=== PATIENT | female | born 1995 | race Caucasian/White ===

== ENCOUNTER 2016-12-31 14:15 | Emergency (ER) | payer OTHER ==
[~2016-12-31] VITALS: Ht 162.6 cm; Wt 59.6 kg
[~2016-12-31 14:15] MED LIST: CYCL5TAB PO
[2016-12-31 14:21] VITALS: TEMP 36.8; Ht 162.6 cm; Wt 59.6 kg
[2016-12-31 16:01] LABS: BASO % 0.3 %; BASO ABS # 0.03 K/uL (0-0.2); COMPLETE YES; EOS % 0.7 %; HEMATOCRIT 39.8 % (37-47); IG% 0.2 %; LYMPH % 14.2 %; LYMPH ABS # 1.55 K/uL (1.2-3.4); MEAN CELL VOLUME 92.6 fL (80-100); MEAN CORPUSCULAR HEMOGLOBIN 31.9 pg (25-34); MEAN CORPUSCULAR HGB CONC 34.4 g/dl (32-36); MEAN PLATELET VOLUME 10.3 fL (7.4-10.4); MONO % 9.1 %; NEUT % 75.5 %; PLATELET COUNT 283 K/uL (130-400); WHITE BLOOD COUNT 10.89 K/uL (4.8-10.8)
[2016-12-31 16:06] LABS: URINE APPEARANCE CLOUDY (CLEAR); URINE BILIRUBIN NEG (NEG); URINE COLOR DK YELLOW; URINE EPITHELIAL CELL AUTO >30 /lpf (0-5); URINE NITRITE NEG (NEG); URINE PH 5.5 (4.5-7.5); URINE SPECIFIC GRAVITY 1.023 (1.000-1.030); UROBILINOGEN NEG (NEG); ZZUR CULT IF INDIC CLEAN CATCH NO
[2016-12-31 16:07] LABS: MANUAL MICROSCOPIC REQUIRED? NO; REVIEW REQ? NO
[2016-12-31] MEDS ORDERED: MECLIZINE HCL 25 MG TAB PO STA (16:10)
[2016-12-31 16:11] LABS: ALT/SGPT 15 U/L (12-78); AST/SGOT 11 U/L (15-37); BLOOD UREA NITROGEN 10 mg/dl (7-18); CALCIUM 8.8 mg/dl (8.5-10.1); CARBON DIOXIDE 28 mmol/L (21-32); CHLORIDE 109 mmol/L (98-107); CREATININE 0.81 mg/dl (0.60-1.20); GLUCOSE 82 mg/dl (70-99); POTASSIUM 3.6 mmol/L (3.5-5.1); SODIUM 144 mmol/L (136-145)
[2016-12-31] MEDS ORDERED: EFF/375 PO (16:12)
[2016-12-31] MEDS ORDERED: SODIUM CHLORIDE 0.9% 1000ML 1,000 ML IV ONE (16:15)
--- NOTE | 2016-12-31 16:17 | DIAGNOSTIC IMAGING REPORT ---
CHEST ONE VIEW PORTABLE CLINICAL HISTORY: dizziness SYNCOPE COMPARISON STUDY: No previous studies for comparison. FINDINGS: The cardiac and mediastinal contours are normal. There is no evidence of focal pulmonary consolidation. There is no evidence of failure. No pleural effusions are visualized.[ IMPRESSION: No active disease in the chest. Electronically signed by: Jatinder Perdomo M.D. 12/31/2016 4:15 PM Dictated Date/Time: 12/31/2016 4:15 PM
[2016-12-31 16:22] LABS: ALB/GLOB RATIO 1.3 (0.9-2); ALKALINE PHOSPHATASE 55 U/L (45-117); THYROID STIMULATING HORMONE 0.413 uIu/ml (0.300-4.500)
[2016-12-31] MEDS ORDERED: ONDA4TAB10 SL (17:12)
[2016-12-31 17:31] VITALS: BP 104/65; PULSE 84; O2SAT 96
--- NOTE | 2016-12-31 23:26 | EMERGENCY ROOM VISIT NOTE ---
History First contact with patient: 15:57 Chief Complaint: DIZZY Stated Complaint: LIGHTHEADED, DIZZY, SHAKING, FAINTING, REAL, STOMACH Nursing Triage Summary: Triage note: pt reports she started effexor 8 days ago. pt reports shortly after starting she has had decreased appetite, vomitting, dizziness and feeling lightheaded. pt reports "i don't know if i passed out or what today i don't remember falling asleep but i remember waking up i was laying down." pt reports mid abd pain started today. History of Present Illness The patient is a 21 year old female who presents to the Emergency Room with complaints of lightheadedness, dizziness, headache, and nausea for the past 7 or 8 days. The patient considers herself usually healthy, but does have some history of anxiety and depression in the past. The patient went to her primary care physician last week and was started on Effexor for the first time. The patient states that her symptoms essentially began immediately after starting this medication. She has had some URI symptoms, and states that when she stands and walks or moves her head she feels like the room is spinning. She has not had vertigo in the past. The patient has not had numbness or paresthesias. No suicidal or homicidal ideation. She denies chance of as she is currently on her menses. The patient had 2 episodes of vomiting yesterday. She is without her normal appetite, and has not been eating well. She has been drinking fluids without difficulty however. She rates her current discomfort a 7/10. Review of Systems More than 10 systems were reviewed and otherwise negative with the exception of history of present illness. Past Medical/Surgical History Medical Problems: (1) Cervicalgia (2) Suicidal ideation Family History Hypertension Social History Smoking Status: Current Every Day Smoker Alcohol Use: none Marital Status: single Housing Status: lives with family Occupation Status: student Current/Historical Medications Scheduled Cyclobenzaprine Hcl (Flexeril), 1 TAB PO PRN UD Ondasetron Odt (Zofran Odt), 4 MG SL Q6H Venlafaxine Hcl (Effexor), 37.5 MG PO DAILY Allergies Coded Allergies: No Known Allergies (Unverified , 10/10/16) Physical Exam Vital Signs Date Time Temp Pulse Resp B/P Pulse Ox O2 Delivery O2 Flow Rate FiO2 12/31/16 17:31 84 18 104/65 96 12/31/16 16:37 73 12/31/16 15:50 72 16 97 Room Air 12/31/16 14:21 36.8 88 18 151/97 97 Room Air Physical Exam VITALS: Vitals are noted on the nurse's note and reviewed by myself. Vital signs stable. GENERAL: Well-developed, well-nourished, white female, who is in no acute distress and resting comfortably. Patient is cooperative with the examination. HEAD: Normocephalic atraumatic. EARS: External ear normal. External auditory canals clear, tympanic membranes pearly sabillon without erythema or effusion bilaterally. EYES: Pupils equal round and reactive to light and accommodation. Conjunctivae without injection, sclerae without icterus. Extraocular movements intact. No nystagmus. NOSE: Patent, turbinates without inflammation or discharge. MOUTH: Mucous membranes moist. Tonsils are not enlarged. Pharynx without erythema, blood, or exudate. Uvula midline. Airway patent. NECK: Supple without nuchal rigidity. No lymphadenopathy. No thyromegaly. Cervical spine is nontender. HEART: Regular rate and rhythm without murmurs gallops or rubs. LUNGS: Clear to auscultation bilaterally without wheezes, rales or rhonchi. No retractions or accessory muscle use. ABDOMEN: Positive normal bowel sounds x 4. Soft, nontender, without masses or organomegaly. No guarding or rebound tenderness. MUSCULOSKELETAL: No muscle atrophy, erythema, or edema noted. Full range of motion without joint tenderness in all extremities. No tenderness to palpation. Normal gait. Strength 5/5 throughout. NEURO: Patient was alert and oriented to person place and time. CN II through XII grossly intact. Deep tendon reflexes 2+ throughout. No focal neurological deficits SKIN: The skin was without rashes, erythema, edema, or bruising. Capillary reflex less than 2 seconds. Medical Decision & Procedures ER Provider Diagnostic Interpretation: CHEST ONE VIEW PORTABLE CLINICAL HISTORY: dizziness SYNCOPE COMPARISON STUDY: No previous studies for comparison. FINDINGS: The cardiac and mediastinal contours are normal. There is no evidence of focal pulmonary consolidation. There is no evidence of failure. No pleural effusions are visualized.[ IMPRESSION: No active disease in the chest. Laboratory Results 12/31/16 15:45 Red Blood Count 4.30, Mean Corpuscular Volume 92.6, Mean Corpuscular Hemoglobin 31.9, Mean Corpuscular Hemoglobin Concent 34.4, Mean Platelet Volume 10.3, Neutrophils (%) (Auto) 75.5, Lymphocytes (%) (Auto) 14.2, Monocytes (%) (Auto) 9.1, Eosinophils (%) (Auto) 0.7, Basophils (%) (Auto) 0.3, Neutrophils # (Auto) 8.22, Lymphocytes # (Auto) 1.55, Monocytes # (Auto) 0.99, Eosinophils # (Auto) 0.08, Basophils # (Auto) 0.03 12/31/16 15:45 Test 12/31/16 15:45 White Blood Count 10.89 K/uL (4.8-10.8) Red Blood Count 4.30 M/uL (4.2-5.4) Hemoglobin 13.7 g/dL (12.0-16.0) Hematocrit 39.8 % (37-47) Mean Corpuscular Volume 92.6 fL (80-100) Mean Corpuscular Hemoglobin 31.9 pg (25-34) Mean Corpuscular Hemoglobin Concent 34.4 g/dl (32-36) Platelet Count 283 K/uL (130-400) Mean Platelet Volume 10.3 fL (7.4-10.4) Neutrophils (%) (Auto) 75.5 % Lymphocytes (%) (Auto) 14.2 % Monocytes (%) (Auto) 9.1 % Eosinophils (%) (Auto) 0.7 % Basophils (%) (Auto) 0.3 % Neutrophils # (Auto) 8.22 K/uL (1.4-6.5) Lymphocytes # (Auto) 1.55 K/uL (1.2-3.4) Monocytes # (Auto) 0.99 K/uL (0.11-0.59) Eosinophils # (Auto) 0.08 K/uL (0-0.5) Basophils # (Auto) 0.03 K/uL (0-0.2) RDW Standard Deviation 43.4 fL (36.4-46.3) RDW Coefficient of Variation 12.9 % (11.5-14.5) Immature Granulocyte % (Auto) 0.2 % Immature Granulocyte # (Auto) 0.02 K/uL (0.00-0.02) Urine Color DK YELLOW Urine Appearance CLOUDY (CLEAR) Urine pH 5.5 (4.5-7.5) Urine Specific [place] 1.023 (1.000-1.030) Urine Protein NEG (NEG) Urine Glucose (UA) NEG (NEG) Urine Ketones TRACE (NEG) Urine Occult Blood NEG (NEG) Urine Nitrite NEG (NEG) Urine Bilirubin NEG (NEG) Urine Urobilinogen NEG (NEG) Urine Leukocyte Esterase NEG (NEG) Urine WBC (Auto) 1-5 /hpf (0-5) Urine RBC (Auto) 0-4 /hpf (0-4) Urine Hyaline Casts (Auto) 5-10 /lpf (0-5) Urine Epithelial Cells (Auto) >30 /lpf (0-5) Urine Bacteria (Auto) NEG (NEG) Anion Gap 7.0 mmol/L (3-11) Est Creatinine Clear Calc Drug Dose 95.7 ml/min Estimated GFR () 121.2 Estimated GFR (Non- 104.6 BUN/Creatinine Ratio 12.0 (10-20) Calcium Level 8.8 mg/dl (8.5-10.1) Total Bilirubin 0.6 mg/dl (0.2-1) Aspartate Amino Transf (AST/SGOT) 11 U/L (15-37) Alanine Aminotransferase (ALT/SGPT) 15 U/L (12-78) Alkaline Phosphatase 55 U/L (45-117) Total Creatine Kinase 61 U/L (26-192) Creatine Kinase MB < 0.5 ng/ml (0.5-3.6) Creatine Kinase MB Ratio (0-3.0) Total Protein 7.5 gm/dl (6.4-8.2) Albumin 4.2 gm/dl (3.4-5.0) Globulin 3.3 gm/dl (2.5-4.0) Albumin/Globulin Ratio 1.3 (0.9-2) Thyroid Stimulating Hormone (TSH) 0.413 uIu/ml (0.300-4.500) Medications Administered Medications (Trade) Dose Ordered Sig/Vicki Route Start Time Stop Time Status Last Admin Dose Admin Sodium Chloride (Nss 1000ml) 1,000 ml @ 999 mls/hr Q1H1M ONCE IV 12/31/16 16:15 12/31/16 17:15 DC 12/31/16 16:30 999 MLS/HR Meclizine HCl (Antivert Tab) 25 mg NOW STAT PO 12/31/16 16:10 12/31/16 16:12 DC 12/31/16 16:30 25 MG ED Course Physical exam and history were performed. Nursing notes and EMR were reviewed. Patient appears to have dizziness, nausea, and vomiting for the past week. This seems to coincide with her starting a new antidepressant medication. IV access was established and labs were obtained. EKG was performed and was normal sinus rhythm. Chest x-ray was ordered and the patient was placed on the property assessment monitor. She was hydrated with normal saline, and given oral meclizine as she does seem to be describing vertiginous symptoms. The patient's blood work is as above and was reviewed. She does not have a significantly elevated white blood cell count, anemia, bandemia, or gross electrolyte imbalance. CK and CK-MB are normal. TSH is normal. Urine is without sign of infection. Chest x-ray does not show acute process. I did reevaluate the patient several times throughout her emergency department stay. After hydration she had almost complete resolution of her symptoms. She does not have persistent vertiginous symptoms, nor did she develop worsening symptoms while here in the department. Clinically her evaluation is benign, as well as her physical exam. I do suspect that her symptoms are related to her medication, and will have her discontinue this. I will provide her a small amount of Zofran to assist with her nausea and vomiting. Hopefully this will allow her to eat and drink well at home, which should improve many of her symptoms. I did recommend the patient contact her primary care physician's office in the morning to let them know we are changing her medications. She should be rechecked by them, as she may need a different SSRI or similar medication. The patient was otherwise invited back to the ER with any new, worsening, or concerning symptoms. She voiced understanding and rated her discomfort a 0/10 at the time of departure. The chart was completed utilizing [employer] Voice Recognition Software. Grammatical errors, random word insertions, pronoun errors, and incomplete sentences are an occasional consequence of this system due to software limitations, ambient noise, and hardware issues. Any formal questions or concerns about the content, text, or information contained within the body of this dictation should be directly addressed to the provider for clarification. . Medical Decision Differential diagnosis: Etiologies such as benign positional vertigo, dehydration, hypovolemia, anemia, tumor, infection, hypoglycemia, electrolyte abnormalities, cardiac sources, intracerebral event, toxicologic, neurologic, as well as others were entertained. Impression Primary Impression: Adverse reaction to antidepressant drug Additional Impressions: Dizziness Nausea & vomiting Departure Information Prescriptions Ondasetron Odt (ZOFRAN ODT) 4 Mg Tab 4 MG SL Q6H for Nausea, #10 TAB Prov: Joshua Alvarez PA-C 12/31/16 Referrals No Doctor, Assigned (PCP) Patient Instructions My [facility] Problem Qualifiers
== END 2016-12-31 17:32 | disposition home or self-care (01) ==
LOC: C.EDB 14:17 → C.EDA 17:32
DX: T88.7XXA Unspecified adverse effect of drug or medicament, initial encounter (principal); R42 Dizziness and giddiness; R11.10 Vomiting, unspecified; Z82.49 Family history of ischemic heart disease and other diseases of the circulatory system; F17.200 Nicotine dependence, unspecified, uncomplicated

== ENCOUNTER 2017-01-26 19:33 | Emergency (ER) | payer OTHER ==
[~2017-01-26] VITALS: Ht 162.6 cm; Wt 59.2 kg
[~2017-01-26 19:33] MED LIST changes: +EFF/375 PO; +ONDA4TAB10 SL
[2017-01-26 19:35] VITALS: TEMP 36.9; Ht 162.6 cm; Wt 59.2 kg
[2017-01-26] MEDS ORDERED: ONDA4TAB10 SL (19:57)
[2017-01-26] MEDS ORDERED: WLLSR150 PO (19:57)
[2017-01-26] MEDS ORDERED: HYDROCODONE/ACETAMOPHEN 5/325MG TAB PO STA (20:29)
[2017-01-26] MEDS ORDERED: KETOROLAC TROMETHAMINE 60 MG/2 ML VIAL IM STA (20:29)
[2017-01-26] MEDS ORDERED: NORCO 5/325MG HOME PACK PO ONE (20:45)
--- NOTE | 2017-01-26 21:07 | DIAGNOSTIC IMAGING REPORT ---
L-SPINE MIN 4 VIEWS ROUTINE CLINICAL HISTORY: Back pain status post trauma COMPARISON STUDY: No previous studies for comparison. FINDINGS: There is a minimal spinal curvature convex to the right. There are 5 lumbar type vertebral bodies present. No fractures or subluxations are visualized. IMPRESSION: No fractures or subluxations identified Electronically signed by: Jatinder Perdomo M.D. 01/26/2017 9:05 PM Dictated Date/Time: 01/26/2017 9:05 PM
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
[2017-01-26 21:31] VITALS: BP 114/81; PULSE 104; O2SAT 96
== END 2017-01-26 21:33 | disposition home or self-care (01) ==
LOC: C.EDB 19:33 → C.EDD 21:33
DX: S30.0XXA Contusion of lower back and pelvis, initial encounter (principal); W10.8XXA Fall (on) (from) other stairs and steps, initial encounter; F17.200 Nicotine dependence, unspecified, uncomplicated; F32.9 Major depressive disorder, single episode, unspecified; Z87.820 Personal history of traumatic brain injury; Z79.899 Other long term (current) drug therapy